=== PATIENT | male | born 1965 | race American Indian/Alaskan Native ===

== ENCOUNTER 2021-09-25 08:29 | Emergency (ER) | payer MEDICAID ==
[2021-09-25 09:21] LABS: ANION GAP 15.2 mmol/L (5-15); CHLORIDE,CL 99 mmol/L (98-107); ESTIMATED GFR 87 mL/min (>=60); SODIUM,NA 135 mmol/L (136-145)
== END 2021-09-25 11:09 | disposition home or self-care (01) ==
LOC: VM.ED 08:29
DX: R42 Dizziness and giddiness (principal); E78.00 Pure hypercholesterolemia, unspecified; I10 Essential (primary) hypertension; J44.9 Chronic obstructive pulmonary disease, unspecified; E11.9 Type 2 diabetes mellitus without complications; M19.90 Unspecified osteoarthritis, unspecified site; Z91.048 Other nonmedicinal substance allergy status; Z88.5 Allergy status to narcotic agent; Z79.899 Other long term (current) drug therapy
CPT/HCPCS: 36415; 70450; 80053; 81003; 84484; 85025; 93005; 93010; 99284; 99285-25

== ENCOUNTER 2024-07-02 08:49 | Inpatient (IN) | payer MEDICAID ==
[2024-07-02] MEDS: Dextrose 5%-0.9% NaCl 1,000 ML IV SCH (09:09)
[2024-07-02 09:18] LABS: HEMOGLOBIN 8.1 g/dL (14.0-18.0); MEAN CORPUSCULAR HEMOGLOBIN 29.2 pg (26.0-32.0); MEAN CORPUSCULAR HGB CONC 33.8 g/dL (32.0-36.0); MEAN CORPUSCULAR VOLUME 86.6 fL (78.0-93.0); PLATELET COUNT,PLT 145 x10^3/uL (130-400); RED BLOOD CELL COUNT 2.77 x10^6/uL (4.5-6.0)
[2024-07-02 09:21] LABS: HCO3 VENOUS,POC 24 mmol/L (22-29); O2 SATURATION VENOUS,POC 65 %; PCO2 VENOUS,POC 41 mmHg (41-51); PH VENOUS,POC 7.37 pH (7.32-7.43); PO2 VENOUS,POC 35 mmHg
[2024-07-02 09:48] LABS: LYMPHOCYTES ABSOLUTE MAN 1.1 x10^3/uL (1.0-4.8); LYMPHOCYTES PERCENT MAN 5 % (25-50); MONOCYTES ABSOLUTE MAN 0.2 x10^3/uL (0.0-0.8); MONOCYTES PERCENT MAN 1 % (2-11); NEUTROPHILS ABSOLUTE MAN 19.7 x10^3/uL (1.8-7.7); SEG NEUTROPHILS PERCENT MAN 94 % (50-80)
[2024-07-02 09:49] LABS: A/G RATIO 0.35; ALANINE AMINOTRANSFERASE,ALT 47 U/L (16-63); ALBUMIN 1.1 g/dL (3.4-5.0); ALKALINE PHOSPHATASE 251 U/L (46-116); ANION GAP 5.6 mmol/L (5-15); ASPARTATE AMNIOTRANSFERASE,AST 28 U/L (15-37); BILIRUBIN TOTAL 0.4 mg/dL (0.2-1.0); BLOOD UREA NITROGEN,BUN 25 mg/dL (7-18); CALCIUM 7.2 mg/dL (8.5-10.1); CARBON DIOXIDE,CO2 33 mmol/L (21-32); CHLORIDE,CL 104 mmol/L (98-107); ESTIMATED GFR 86 mL/min (>=60); GLUCOSE RANDOM 55 mg/dL (70-99); MAGNESIUM 1.7 mg/dL (1.8-2.4); POTASSIUM,K 4.6 mmol/L (3.5-5.1); PRO B-TYPE NATRIUR PEPT,BNPPRO 442 pg/mL (<=125); PROTEIN TOTAL,TP 4.2 g/dL (6.4-8.2); SODIUM,NA 138 mmol/L (136-145)
[2024-07-02] MEDS: Piperacillin/Tazobactam 4.5 GM in Sodium Chloride 0.9% 100 ML IV ONE (09:59)
[2024-07-02 11:03] LABS: APPEARANCE,URINE SLIGHTLY CLOUDY (CLEAR); BILIRUBIN,URINE NEGATIVE (NEGATIVE); COLOR,URINE YELLOW (YELLOW); GLUCOSE,URINE NEGATIVE (NEGATIVE); KETONES,URINE NEGATIVE (NEGATIVE); LEUKOCYTE ESTERASE,URINE MODERATE (NEGATIVE); NITRITE,URINE NEGATIVE (NEGATIVE); OCCULT BLOOD,URINE TRACE-INTACT (NEGATIVE); PROTEIN,URINE NEGATIVE (NEGATIVE); UROBILINOGEN,URINE 0.2 EU/dL (0.2)
[2024-07-02 11:10] LABS: BACTERIA,URINE MANY /HPF (NOT SEEN); RBC,URINE 0-5 /HPF (NOT SEEN); SQUAMOUS EPITHELIAL CELLS,UR RARE /HPF (NOT SEEN); WBC,URINE 30-40 /HPF (NOT SEEN)
[2024-07-02] MEDS: Doxycycline Monohydrate 100 MG Cap PO SCH (12:48)
[2024-07-02] MEDS: Sodium Chloride 0.9% 1,000 ML IV ONE (13:15)
[2024-07-02] MEDS: Azithromycin 500 MG in Sodium Chloride 0.9% 250 ML IV SCH (13:22)
[2024-07-02] MEDS ORDERED: Menthol/Zinc Oxide Ointment 3.5 GM Tube TOP PRN (13:36)
[2024-07-02] MEDS ORDERED: Glucagon,Human Recombinant 1 MG Vial IM PRN (13:36)
[2024-07-02] MEDS ORDERED: Morphine Oral Concentrate 20 MG/ML 30 ML Bottle PO PRN (13:36)
[2024-07-02] MEDS ORDERED: Loperamide 2 MG Cap PO PRN (13:36)
[2024-07-02] MEDS ORDERED: CREON PO PRN (13:36)
[2024-07-02] MEDS ORDERED: Lactulose Soln 10 GM/15 ML 30 ML UD Cup PO PRN (13:36)
[2024-07-02] MEDS ORDERED: Acetaminophen 500 MG Tab PO PRN (13:36)
[2024-07-02] MEDS: Morphine Oral Concentrate 20 MG/ML 30 ML Bottle PO SCH (14:39)
[2024-07-02] MEDS: cefTRIAXone 1 GM Vial IVPUSH SCH (15:36)
[2024-07-02] MEDS: Lactated Ringers 1,000 ML IV SCH (15:42)
[2024-07-02] MEDS ORDERED: Insulin Lispro 100 Units/ML 3 ML Vial SUBCUT SCH (18:00)
[2024-07-02] MEDS: Insulin Lispro 100 Units/ML 3 ML Vial SUBCUT SCH (18:34)
[2024-07-02] MEDS: CREON PO SCH (18:35)
[2024-07-02] MEDS: Melatonin 3 MG Tab PO SCH (21:20)
[2024-07-02] MEDS: Menthol/Zinc Oxide Ointment 3.5 GM Tube TOP SCH (21:20)
[2024-07-02] MEDS: hydrOXYzine HCl 25 MG Tab PO SCH (21:20)
[2024-07-02] MEDS: ClonazePAM 0.5 MG Tab PO SCH (21:20)
[2024-07-02] MEDS: PALIPERIDONE 6 MG PO SCH (21:31)
[2024-07-02] MEDS: Metoprolol Tartrate 25 MG Tab PO SCH (21:56)
[2024-07-02] MEDS: Mineral Oil/Petrolatum,White Crm 454 GM Jar TOP SCH (22:37)
[2024-07-03 07:44] LABS: BASOPHILS PERCENT AUTO 0.1 % (0.2-1.2); EOSINOPHILS PERCENT AUTO 0.2 % (0.0-4.0); IMMATURE GRAN ABSOLUTE AUTO 0.08 x10^3/uL (0.00-0.07); LYMPHOCYTES ABSOLUTE AUTO 1.7 x10^3/uL (1.0-4.8); LYMPHOCYTES PERCENT AUTO 9.8 % (25.0-50.0); MEAN CORPUSCULAR HEMOGLOBIN 29.1 pg (26.0-32.0); MEAN CORPUSCULAR HGB CONC 33.3 g/dL (32.0-36.0); MEAN CORPUSCULAR VOLUME 87.3 fL (78.0-93.0); MONOCYTES ABSOLUTE AUTO 0.4 x10^3/uL (0.0-0.8); MONOCYTES PERCENT AUTO 2.3 % (2.0-11.0); NEUTROPHILS ABSOLUTE AUTO 15.1 x10^3/uL (1.8-7.7); NEUTROPHILS PERCENT AUTO 87.1 % (50.0-80.0); PLATELET COUNT,PLT 144 x10^3/uL (130-400); RED BLOOD CELL COUNT 2.75 x10^6/uL (4.5-6.0); WHITE BLOOD CELL COUNT,WBC 17.3 x10^3/uL (4.0-10.0)
[2024-07-03 08:05] LABS: A/G RATIO 0.34; ALANINE AMINOTRANSFERASE,ALT 45 U/L (16-63); ALKALINE PHOSPHATASE 300 U/L (46-116); ASPARTATE AMNIOTRANSFERASE,AST 29 U/L (15-37); BILIRUBIN TOTAL 0.3 mg/dL (0.2-1.0); BLOOD UREA NITROGEN,BUN 19 mg/dL (7-18); CALCIUM 7.2 mg/dL (8.5-10.1); CARBON DIOXIDE,CO2 30 mmol/L (21-32); CHLORIDE,CL 108 mmol/L (98-107); CREATININE 0.8 mg/dL (0.70-1.30); GLUCOSE RANDOM 121 mg/dL (70-99); POTASSIUM,K 4.5 mmol/L (3.5-5.1); PROTEIN TOTAL,TP 3.9 g/dL (6.4-8.2); SODIUM,NA 142 mmol/L (136-145)
[2024-07-03 08:08] LABS: ANION GAP 8.5 mmol/L (5-15); ESTIMATED GFR 101 mL/min (>=60)
[2024-07-03] MEDS: Latanoprost 0.005% Ophth Soln 2.5 ML Bottle EYEBOTH SCH (09:22)
[2024-07-03] MEDS: Acetaminophen 500 MG Tab PO SCH (09:23)
[2024-07-03] MEDS: Gabapentin 100 MG Cap PO SCH (09:23)
[2024-07-03] MEDS: Citalopram 20 MG Tab PO SCH (09:23)
[2024-07-03] MEDS: Furosemide 20 MG Tab PO SCH (09:24)
[2024-07-03] MEDS: Prazosin 1 MG Cap PO SCH (09:24)
[2024-07-03] MEDS: Glycopyrrolate 1 MG Tab PO SCH (09:27)
[2024-07-03] MEDS: Insulin Glarg,Human.Rec.Analog 100 Unit/ML 10 ML Vial SUBCUT SCH (09:29)
[2024-07-03] MEDS: Lactated Ringers 1,000 ML IV ONE (13:22)
[2024-07-04] MEDS: 50% Dextrose in Water 50 ML Syringe IVPUSH PRN (05:28)
[2024-07-04 09:34] LABS: BASOPHILS PERCENT AUTO 0.2 % (0.2-1.2); EOSINOPHILS ABSOLUTE AUTO 0.1 x10^3/uL (0.0-0.5); EOSINOPHILS PERCENT AUTO 0.6 % (0.0-4.0); HEMATOCRIT 22.4 % (40.0-52.0); HEMOGLOBIN 7.5 g/dL (14.0-18.0); IMMATURE GRAN ABSOLUTE AUTO 0.09 x10^3/uL (0.00-0.07); LYMPHOCYTES ABSOLUTE AUTO 2.6 x10^3/uL (1.0-4.8); LYMPHOCYTES PERCENT AUTO 23.7 % (25.0-50.0); MEAN CORPUSCULAR HEMOGLOBIN 29.4 pg (26.0-32.0); MEAN CORPUSCULAR HGB CONC 33.5 g/dL (32.0-36.0); MEAN CORPUSCULAR VOLUME 87.8 fL (78.0-93.0); MONOCYTES ABSOLUTE AUTO 0.3 x10^3/uL (0.0-0.8); NEUTROPHILS ABSOLUTE AUTO 7.7 x10^3/uL (1.8-7.7); NEUTROPHILS PERCENT AUTO 71.7 % (50.0-80.0); PLATELET COUNT,PLT 115 x10^3/uL (130-400); RED BLOOD CELL COUNT 2.55 x10^6/uL (4.5-6.0); WHITE BLOOD CELL COUNT,WBC 10.8 x10^3/uL (4.0-10.0)
[2024-07-04 09:55] LABS: A/G RATIO 0.29; ALANINE AMINOTRANSFERASE,ALT 45 U/L (16-63); ALBUMIN 0.8 g/dL (3.4-5.0); ALKALINE PHOSPHATASE 427 U/L (46-116); ASPARTATE AMNIOTRANSFERASE,AST 40 U/L (15-37); BILIRUBIN TOTAL 0.2 mg/dL (0.2-1.0); BLOOD UREA NITROGEN,BUN 19 mg/dL (7-18); CALCIUM 7.1 mg/dL (8.5-10.1); CARBON DIOXIDE,CO2 28 mmol/L (21-32); CHLORIDE,CL 110 mmol/L (98-107); CREATININE 0.8 mg/dL (0.70-1.30); GLUCOSE RANDOM 192 mg/dL (70-99); PROTEIN TOTAL,TP 3.6 g/dL (6.4-8.2); SODIUM,NA 144 mmol/L (136-145)
[2024-07-04 10:07] LABS: ESTIMATED GFR 101 mL/min (>=60)
[2024-07-04 10:08] LABS: LIPASE < 6 U/L (19-71)
[2024-07-05] MEDS ORDERED: Amoxicillin/Clavulanate K 600-42.9 MG/5 ML Susp 125 ML Bottle PO SCH (08:00)
== END 2024-07-04 10:15 | disposition home or self-care (01) | DRG 871 ==
LOC: VM.ED 08:49 → VM.MS 10:41
PROVIDERS: ADMIT Physician Assistant; ATTEND Internal Medicine
DX: A41.51 Sepsis due to Escherichia coli [E. coli] (principal); E43 Unspecified severe protein-calorie malnutrition; J18.9 Pneumonia, unspecified organism; K86.1 Other chronic pancreatitis; N39.0 Urinary tract infection, site not specified; E87.1 Hypo-osmolality and hyponatremia; Z66 Do not resuscitate; I95.9 Hypotension, unspecified; E78.00 Pure hypercholesterolemia, unspecified; I10 Essential (primary) hypertension; X58.XXXA Exposure to other specified factors, initial encounter; J44.9 Chronic obstructive pulmonary disease, unspecified; G47.30 Sleep apnea, unspecified; M19.90 Unspecified osteoarthritis, unspecified site; F41.9 Anxiety disorder, unspecified; F43.10 Post-traumatic stress disorder, unspecified; L89.626 Pressure-induced deep tissue damage of left heel; L89.616 Pressure-induced deep tissue damage of right heel; E11.649 Type 2 diabetes mellitus with hypoglycemia without coma; S91.302A Unspecified open wound, left foot, initial encounter; S91.301A Unspecified open wound, right foot, initial encounter; E86.0 Dehydration; L98.499 Non-pressure chronic ulcer of skin of other sites with unspecified severity; T38.3X5A Adverse effect of insulin and oral hypoglycemic [antidiabetic] drugs, initial encounter; R62.7 Adult failure to thrive; A41.59 Other Gram-negative sepsis; K76.82 Hepatic encephalopathy; D64.9 Anemia, unspecified; E11.42 Type 2 diabetes mellitus with diabetic polyneuropathy; F25.0 Schizoaffective disorder, bipolar type; F32.9 Major depressive disorder, single episode, unspecified; E11.51 Type 2 diabetes mellitus with diabetic peripheral angiopathy without gangrene; G24.01 Drug induced subacute dyskinesia; L89.102 Pressure ulcer of unspecified part of back, stage 2; Z88.8 Allergy status to other drugs, medicaments and biological substances; Z79.4 Long term (current) use of insulin; Z79.899 Other long term (current) drug therapy; Z79.84 Long term (current) use of oral hypoglycemic drugs; Z87.820 Personal history of traumatic brain injury
CPT/HCPCS: 36415; 71045; 80053; 81001; 82140; 82803; 82947; 83605; 83690; 83735; 83880; 84484; 85025; 87040; 87070; 87086; 87088; 87186; 96361; 96365; 99223; 99233; 99284; 99285-25; A9270-GY; C1758; J0456; J0696; J1815-GY; J2543; J7030; J7042; J7120